=== PATIENT | female | born 1990 | race Caucasian/White ===

== ENCOUNTER 2017-02-15 18:44 | Emergency (ER) | payer OTHER ==
--- NOTE | 2017-02-15 19:46 | ED Physician Documentation ---
Chest Pain - HISTORIAN Historian: patient, spouse - HPI Chief Complaint: Chest Pain Additional Information: lt ant para sternal cp relieved w/pressure-exaberates on release and occ hurts w /deep breathing-no trauma lifts child frequently. Onset: days ago (1) Timing: gradual onset Duration: waxing, waning Last known Well Date: 02/14/17 Last Known Well Time: 13:00 Severity: mild Quality: pressure, aching, sharp Chest Pain Radiation: no radiation Chest Pain Signs/Symptoms: denies: nausea, vomiting, diaphoresis, cool extremities, dizziness, dyspnea Relieved By: other (pressure) - ROS CONST: none (14 wks present) MS/LYMPH: none GI/: none EYES/ENT: none SKIN/ENDO: none NEURO/PSYCH: none - PAST HX NH risk factors: other (spon rt pneumothorax 10 yrs ago) DVT/PE Risk Factors: none TAD/AAA risk factors: (14wks) Neuro deficit: none GI disease: none Surgeries/Procedures: other (pneumothorax) - SOCIAL HX Smoking History: greater than 1 pack/day Alcohol Use: occasionally Drug Use: none - FAMILY HX Family HX: none - REVIEWED ASSESSMENTS Nursing Assessment Reviewed: Yes Vitals Reviewed: Yes ED Results Lab/Radiology - Orders Orders: ED Orders Category Date Time Status EKG WITH COMPARISON Stat Ther 02/15/17 Ordered Chest Pain Physical Exam - EXAM General Appearance: no acute distress, mild distress EENT: eye inspection normal, no signs of dehydration Neck: nml inspection Respiratory: no resp. distress, nml breath sounds, left (parasternal area approx rib 5-6). No: chest non-tender, resp.distress, manifests distinct pain on movement CVS: reg. rate & rhythm. No: irregularly irreg. rhythm Abdomen: soft, non-tender Skin: warm/dry, normal color. No: cyanosis, diaphoresis, jaundice, mottled Extremities: non-tender, normal range of motion Neuro: oriented X3, motor nml, sensation nml, mood/affect nml Discharge Clincal Impression: ant chest wall pain-5-6 parasternal Comments: rec ibu 600tid but call ob dr before starting Condition: Good Disposition: 01 HOME, SELF-CARE Decision to Admit: NO Decision Time: 19:44
[2017-02-15 22:08] VITALS: BP 101/62
== END 2017-02-15 19:54 | disposition home or self-care (01) ==
LOC: ED 18:44
DX: R07.89 Other chest pain (principal); Z33.1 Pregnant state, incidental
CPT/HCPCS: 99283

== ENCOUNTER 2018-01-29 20:39 | Emergency (ER) | payer OTHER ==
--- NOTE | 2018-01-29 20:42 | ED Physician Documentation ---
General Adult - HISTORIAN Historian: patient - HPI Stated Complaint: cough x 2 weeks Chief Complaint: Cough/ Upper Respiratory Onset: days ago (14) Timing: still present Severity: moderate Further Comments: yes (reports cough, congestion and fatigue x 2 weeks. She states that she has not had a fever, she has tried OTC allergy and cold medicine with no relief. She feels like she should be able to cough up the phglem but she cannot. She has no sick contacts. No other complaints) Last known Well Code/Unknown Code: Unknown - ROS CONST: no problems EYES/ENT: nasal drainage, nasal congestion. denies: sore throat CVS/RESP: cough. denies: chest pain, shortness of breath GI/: denies: vomiting, nausea MS/SKIN/LYMPH: denies: rash NEURO/PSYCH: headache (sinus ) - PAST HX Past History: other (she has a history x1 of pnumothorax ) Surgeries/Procedures: none Immunizations: UTD Allergies/Adverse Reactions: Allergies Allergy/AdvReac Type Severity Reaction Status Date / Time No Known Allergies Allergy Verified 01/29/18 21:03 Home Medications: Ambulatory Orders Medication Instructions Recorded Medroxyprogesterone Acetate 104 mg SQ Q3M 01/29/18 [Depo-Subq Provera 104] - SOCIAL HX Smoking History: cigarettes Alcohol Use: none Drug Use: none - FAMILY HX Family History: No - VITAL SIGNS Vital Signs: Vital Signs Temp Pulse Resp BP Pulse Ox 101/62 02/15/17 19:55 - REVIEWED ASSESSMENTS Nursing Assessment Reviewed: Yes Vitals Reviewed: Yes ED Results Lab/Radiology - Radiology Radiology Impressions: Chest, PA and lateral History: Cough Findings: The heart, lungs, pleura, mediastinum and bony thorax are normal. Impression: Normal. Electronically signed on January 29, 2018 9:25:15 PM CDT by: Ty Palacios General Adult Physical Exam - PHYSICAL EXAM GENERAL APPEARANCE: no distress EENT: eye inspection normal, ENT inspection normal, pharynx normal (phglem ), no signs of dehydration, TM's nml NECK: normal inspection RESPIRATORY: no resp distress, wheezes CVS: reg rate & rhythm, heart sounds normal, equal pulses, no murmur ABDOMEN: soft, normal bowel sounds RECTAL: normal exam BACK: normal inspection SKIN: warm/dry, normal color EXTREMITIES: non-tender, normal range of motion, no evidence of injury, no edema NEURO: oriented X3, CN's nml as tested, motor nml, sensation nml, mood/affect nml, cognition normal Discharge Clincal Impression: Bronchitis Referrals: Primary Doctor,No [Primary Care Provider] - 2 Days Comments: 1. Azithromycin 250 mg (2 tabs given in ER) take 1 by mouth daily x 4 days 2. Medrol Dose pack - take as directed 3. Increase fluids 4. Saline nasal rinse 5. See PCP in 2-4 days if no improvement 6. Return to ER for any concerns Condition: Stable Disposition: 01 HOME, SELF-CARE Decision to Admit: NO Date of Decison to Admit: 01/29/18 Decision Time: 21:30
[2018-01-29] MEDS ORDERED: IPRATROPIUM/ALBUTEROL SULFATE 3 ML AMPUL.NEB NEB ONE ×2 (20:54)
[2018-01-29] MEDS ORDERED: predniSONE 20 MG TABLET PO ONE (21:31)
[2018-01-29] MEDS ORDERED: AZITHROMYCIN 250 MG TABLET PO ONE (21:31)
--- NOTE | 2018-01-29 21:31 | Diagnostic Imaging Report ---
[facility] [address] [facility].[address] [id number] Report Submission Date: January 29, 2018 9:25:15 PM CDT Patient Study Name: BALJINDER RUTHERFORD Date: January 29, 2018 9:07:37 PM CDT Modality Type: DX Gender: F Description: CHEST : 88 Institution: [facility] Physician: DIANA LEMOS Chest, PA and lateral History: Cough Findings: The heart, lungs, pleura, mediastinum and bony thorax are normal. Impression: Normal. Electronically signed on January 29, 2018 9:25:15 PM CDT by: Ty GOTTI
[2018-01-29 21:48] VITALS: BP 112/70
== END 2018-01-29 21:38 | disposition home or self-care (01) ==
LOC: ED 20:39
DX: J20.9 Acute bronchitis, unspecified (principal)
CPT/HCPCS: 71046; 94640